=== PATIENT | female | born 1970 | race Asian ===

== ENCOUNTER 2019-06-11 14:23 | Outpatient (CLI) | payer OTHER, SELFPAY ==
[2019-06-11 16:52] LABS: TSH 2.62 uIU/mL (0.36-3.74)
== END 2019-06-11 14:43 ==
PROVIDERS: PCP Family Medicine; Visit Provider Advanced Practice Midwife
DX: E04.9 Nontoxic goiter, unspecified (principal)
CPT/HCPCS: 36415; 84443

== ENCOUNTER 2020-10-06 02:49 | Outpatient (CLI) | payer OTHER, SELFPAY ==
[2020-10-06 13:54] LABS: TSH 2.44 uIU/mL (0.36-3.74)
== END 2020-10-06 02:50 | disposition home or self-care (01) ==
LOC: LBO 02:49
PROVIDERS: PCP Nurse Practitioner Family; Visit Provider Nurse Practitioner Family
DX: E04.9 Nontoxic goiter, unspecified (principal)
CPT/HCPCS: 36415; 84443

== ENCOUNTER 2021-12-05 04:04 | Outpatient (CLI) | payer OTHER, SELFPAY ==
[2021-12-05 13:42] LABS: Anion Gap 8.3 mmol/L (3-11); BUN 13 mg/dL (7-18); CO2 28.7 mmol/L (21.0-32.0); Calcium 9.1 mg/dL (8.5-10.1); Calculated LDL 145 mg/dL (<100); Chloride 106 mmol/L (98-107); Cholesterol 231 mg/dL (<200); Estimated GFR 58.69 (mL/min/1.73m2); Glucose 93 mg/dL (74-106); HDL Cholesterol 72 mg/dL (40-60); Sodium 143 mmol/L (136-145); Triglyceride 72 mg/dL (<150)
== END 2021-12-05 04:05 | disposition home or self-care (01) ==
LOC: LBO 04:05
PROVIDERS: PCP Nurse Practitioner Family; Visit Provider Nurse Practitioner Family
DX: E04.9 Nontoxic goiter, unspecified (principal); Z13.220 Encounter for screening for lipoid disorders; Z13.1 Encounter for screening for diabetes mellitus
CPT/HCPCS: 36415; 80048; 80061; 84443

== ENCOUNTER → 2023-04-09 14:40 | Outpatient (CLI) | payer OTHER, SELFPAY ==
--- NOTE | 2023-04-09 14:00 | DI.RAD_ITS ---
Exam(s) XR FOOT LT COMPLETE EXAM: XR FOOT LT COMPLETE CLINICAL HISTORY: Lt foot pain, M79.672. TECHNIQUE: 2D digital imaging was performed. Three views. COMPARISON: No exams were available for comparison FINDINGS: BONES: No acute fracture is present. No bony destructive lesion is seen. There is an accessory adry cular. Plantar arch is maintained. JOINTS: No dislocation present. There are no significant degenerative changes. SOFT TISSUE: Normal. IMPRESSION: Unremarkable radiographs of the left foot. DATA REPOSITORY: RADIATION DOSE DELIVERED:
== END ==
PROVIDERS: PCP Nurse Practitioner Family; Visit Provider Podiatrist
DX: M79.672 Pain in left foot (principal)
CPT/HCPCS: 73630

== ENCOUNTER 2024-12-10 09:22 | Outpatient (CLI) | payer OTHER, SELFPAY ==
[2024-12-10 09:57] LABS: BUN 12 mg/dL (7-18); Calcium 8.6 mg/dL (8.5-10.1); Calculated LDL 132 mg/dL (<100); Chloride 106 mmol/L (98-107); Cholesterol 204 mg/dL (<200); Estimated GFR 67.36 (mL/min/1.73m2); Glucose 101 mg/dL (74-106); HDL Cholesterol 58 mg/dL (>or=50); Sodium 141 mmol/L (136-145); Triglyceride 71 mg/dL (<150)
[2024-12-13 12:05] LABS: Measles IgG Antibody Positive (See Note)
== END 2024-12-10 09:23 | disposition home or self-care (01) ==
LOC: LBO 09:22
PROVIDERS: PCP Nurse Practitioner Family; Visit Provider Nurse Practitioner Family
DX: Z13.220 Encounter for screening for lipoid disorders (principal); Z13.1 Encounter for screening for diabetes mellitus; Z01.84 Encounter for antibody response examination
CPT/HCPCS: 36415; 80048; 80061; 86765